=== PATIENT | female | born 1970 | race Caucasian/White ===

== ENCOUNTER → 2020-07-21 | Outpatient (CLI) | payer OTHER ==
[~2020-07-21] VITALS: Ht 165 cm; Wt 128.0 kg
[~2020-07-21] MED LIST: CATHETER FLUSH 10 ML SYR IV PRN; REGADENOSON 0.4 MG/5 ML SYR (LEXISCAN) IV ONE
[2020-07-21 14:07] VITALS: BP 144/95
--- NOTE | 2020-07-21 16:09 | Cardiology Stress Test Report ---
Stress Test Report Date of Procedure/Referring: Date of Procedure: Jul 21, 2020 PCP Aristides Stallings MD Admitting Physician No,Local Physician Indications: Chest pain Baseline Heart Rate: 76 Baseline Blood Pressure: Blood Pressure Systolic: 144 Blood Pressure Diastolic: 95 Baseline Vitals Vital Signs Date Time Temp Pulse Resp B/P (MAP) Pulse Ox O2 Delivery O2 Flow Rate FiO2 07/21/20 14:07 76 144/95 (111) 98 Baseline EKG: Baseline EKG: normal sinus rhythm Summary After explaining the procedure to the patient, she signed a consent and then brought to the stress nuclear laboratory. Patient received 0.4 mg Lexiscan for stress test, ECG, heart rate and blood pressure were monitored continuously. Resting and stress dose of radio tracer were injected, imaging was acquired and reviewed in short axis, horizontal long axis and vertical long axis views. TID: 1.01 SSS: 12 SDS: 10 EF: 77 1. Patient tolerated Lexiscan well 2. Breast attenuation with reversible ischemia involving the whole anterior wall and anterolateral wall 3. Normal left ventricular size, EF 77 percent ARISTIDES STALLINGS MD Jul 21, 2020 16:09
== END ==
LOC: CARD 07:53 → MERGE 12:00
PROVIDERS: ATTEND Internal Medicine Cardiovascular Disease
DX: I10 Essential (primary) hypertension (principal); R07.9 Chest pain, unspecified; R06.00 Dyspnea, unspecified; Z72.0 Tobacco use
CPT/HCPCS: 78452; 93017; 93306; A9502

== ENCOUNTER 2020-07-28 14:00 | Day surgery (SDC) | payer OTHER ==
[2020-07-28] VITALS (10 sets, daily range): BP systolic 123–160; BP diastolic 69–96
[~2020-07-28] VITALS: Ht 165 cm; Wt 128.0 kg
[2020-07-28 12:23] LABS: BILIRUBIN,URINE NEGATIVE (NEGATIVE); CLARITY,URINE CLEAR; COLOR,URINE YELLOW; GLUCOSE, URINE (UA) NEGATIVE (NEGATIVE); KETONES,URINE TRACE (NEGATIVE); LEUKOCYTE ESTERASE ,URINE NEGATIVE (NEGATIVE); NITRITE,URINE NEGATIVE (NEGATIVE); PROTEIN,URINE TRACE (NEGATIVE)
--- NOTE | 2020-07-28 12:27 | Diagnostic Imaging Report ---
INDICATION: Chest pain and hypertension. Time of exam 12:14 p.m. No prior studies are available for comparison. The heart size is normal. The pulmonary vascularity is unremarkable. The lungs are clear. No infiltrate, effusion or pneumothorax is detected. IMPRESSION: No acute cardiopulmonary process is detected. Dictated by: Dictated on workstation # [id number]
[2020-07-28 12:29] LABS: HEMOGLOBIN 12.1 g/dL (11.5-16.0); MEAN PLATELET VOLUME 9.1 fL (9.0-12.2); WHITE BLOOD COUNT 13.4 10^3/uL (4.3-11.0)
[2020-07-28 12:31] LABS: BACTERIA,URINE LARGE /HPF; RBC,URINE 0-2 /HPF
[2020-07-28 12:36] LABS: PROTHROMBIN TIME PATIENT 13.5 SEC (12.2-14.7)
[2020-07-28 12:42] LABS: ALANINE AMINOTRANSFERASE 41 U/L (0-55); ALBUMIN 4.3 GM/DL (3.2-4.5); ALKALINE PHOSPHATASE 74 U/L (40-136); BILIRUBIN,TOTAL 0.3 MG/DL (0.1-1.0); BUN/CREATININE RATIO 12; CALCIUM 9.3 MG/DL (8.5-10.1); CARBON DIOXIDE 23 MMOL/L (21-32); CHLORIDE 104 MMOL/L (98-107); CHOLESTEROL 265 MG/DL (< 200); CREATININE SERUM 0.82 MG/DL (0.60-1.30); GFR ESTIMATED > 60; GLUCOSE 107 MG/DL (70-105); HDL CHOLESTEROL 55 MG/DL (40-60); POTASSIUM 4.5 MMOL/L (3.6-5.0); SODIUM 140 MMOL/L (135-145); TOTAL PROTEIN 8.7 GM/DL (6.4-8.2); TRIGLYCERIDES 202 MG/DL (<150); VLDL CHOLESTEROL 40 MG/DL (5-40)
[~2020-07-28 14:00] MED LIST changes: -CATHETER FLUSH 10 ML SYR IV PRN; +HEParin (CATH LAB) 2,000 ML IV ONE; +LIDOCAINE 1% INJ 20 ML 20 ML VIAL ONE; +MIDAZOLAM 5 MG/5 ML (VERSED) VIAL ONE; +NS IV 1000 ML 1,000 ML IV SCH; +NS IV 1000 ML 1,000 ML ONE; -REGADENOSON 0.4 MG/5 ML SYR (LEXISCAN) IV ONE; +fentaNYL INJECTION 100 MCG/2 ML AMP ONE
[2020-07-28] MEDS ORDERED: LEVO75TA6 PO (14:14)
[2020-07-28] MEDS ORDERED: OMEP40CA27 PO (14:14)
[2020-07-28] MEDS ORDERED: TIZA4TAB4 PO (14:14)
[2020-07-28] MEDS ORDERED: TIOT4MIS3 IH (14:14)
[2020-07-28] MEDS ORDERED: HYDR50TA76 PO (14:14)
[2020-07-28] MEDS ORDERED: SERT50TA9 PO (14:14)
[2020-07-28] MEDS ORDERED: AMIT25TA9 PO (14:14)
[2020-07-28] MEDS ORDERED: AMLO-250 PO (14:14)
[2020-07-28] MEDS ORDERED: MTP25TSR PO (14:14)
[2020-07-28] MEDS ORDERED: HYDR50CA3 PO (14:14)
[2020-07-28] MEDS ORDERED: LOSA100T57 PO (14:14)
[2020-07-28] MEDS ORDERED: ESTR1TAB27 PO (14:19)
[2020-07-28] MEDS ORDERED: CLOP75TA69 PO (14:19)
[2020-07-28] MEDS ORDERED: BENZ100C18 PO (14:20)
[2020-07-28] MEDS ORDERED: ONDA4TAB11 PO (14:20)
--- NOTE | 2020-07-28 14:22 | NUR ---
SPOKE WITH THE PT, CALLED [facility], LONNIE BELTRAN AND [facility] TO COMPLETE THE MED REC THE FOLLOWING MEDICATIONS PT GETS THRU THE REPOSITORY: 05-11-2020 LEVOTHYROXINE 75MCG #90/90DS 05-11-2020 LOSARTAN 100MG #75 (PT TAKES TAB DAILY) 05-18-2020 AMITRIPTYLINE 25MG #60 05-31-2020 HYDROXYZINE 50MG #120 05-31-2020 OMEPRAZOLE 40MG #90/90DS 07-26-2020 SERTRALINE 50MG #90/30DS 07-26-2020 TIZANIDINE 4MG #30 07-26-2020 STIOLTO RESPIMAT #2 MEDS FILLED AT [facility]: 07-10-2020 ESTRACE 1MG #30/30DS 07-19-2020 METOPROLOL ER 25MG #30/30DS MEDS FILLED AT [facility]: 04-06-2020 AMLODIPINE 5MG #30/30DS- I DID INCLUDE THE PAST DUE FILL ON THE MED REC CLOPIDOGREL 75MG- PT WAS PRESCRIBED THIS ON 07-26-2020 (RX SENT TO [facility]) HOWEVER PT DID NOT HAVE A CHANCE TO PICK THIS MEDICATION AND START. I INCLUDED IT ON THE MED REC FOR CONTINUATION/ DISCHARGE PURPOSES. I LET TARA CHAVES IN CL[employer] OF [employer]KS KNOW OF THIS.
[2020-07-28] MEDS ORDERED: NS IV 1000 ML 1,000 ML IV SCH (14:39)
[2020-07-28] MEDS ORDERED: ATOR10TA PO (14:41)
--- NOTE | 2020-07-28 14:41 | Discharge Inst-Post CATH ---
Discharge Inst-CATH/EP Problems Reviewed?: Yes Post Cardiac Cath/EP D/C Inst Follow Up/Plan Appointment with Dr. Stallings's office in 4 weeks <b>CARDIAC CATH/EP PROCEDURE DISCHARGE INSTRUCTIONS</b> ACTIVITY * Go Home directly and rest. * Limit activity of the leg (or wrist if it was used) for 7 days including aerobics, swimming, jogging, bicycling, etc. * Restrict stair-climbing for 7 days if possible, if not, climb up with your non-cath leg, then bring together on the same step. * Avoid lifting, pushing, pulling or excessive movement of the affected extremity for 7 days. * Customary sexual activity may be resumed after 2 days-use caution not to use a position that strains or causes pain to the affected extremity. * No driving for 24 hours. * NO SMOKING. * Avoid straining for bowel movements for 7 days. * Gentle walking on level ground is allowed. * Returning to work will depend on the type of procedure and the results. Your doctor will discuss this with you. CALL YOUR DOCTOR FOR ANY OF THE FOLLOWING: *If bleeding from the puncture site occurs- Apply gentle pressure to site with clean cloth and call your doctor or EMS. * If a knot or lump forms under the skin, increases in size, or causes pain. * If bruising appears to be worsening or moving further down your leg instead of disappearing. * Temperature above 101 F. CARE OF YOUR GROIN INCISION; * Bruising or purple discoloration of the skin near the puncture site is common. * You may shower only, no bathtub bathing for 5 days. Be careful to avoid slipping as your leg may feel stiff. * If a closure device was used on your femoral artery, please see the attached guide regarding care of the device and your leg. * Leave dressing on FOR 24 hours. CARE OF YOUR WRIST INCISION; * Bruising or purple discoloration of the skin near the puncture site is common. * You may shower. * DO NOT submerge wrist. * Leave dressing on FOR 24 hours. ARISTIDES STALLINGS MD Jul 28, 2020 14:41
[2020-07-28] MEDS ORDERED: PATIENT MAY USE OWN MEDS, ALL PO SCH (14:45)
--- NOTE | 2020-07-28 14:47 | Cardiac Cath Report ---
Cardiac Cath Report Physician (s)/Road Contractor (s) Physician ARISTIDES LAWSON MD Pre-Procedure Diagnosis Pre-Procedure Diagnosis: coronary artery disease Post-Procedure Note Procedure Start Date: Jul 28, 2020 Name of Procedure: Left heart catheterization Findings/Procedure Note PROCEDURE NOTE: 50 years old lady with history of hypertension, hyperlipidemia, had an abnormal stress test with anterior wall ischemia scheduled for cardiac catheterization possible PTCA. After explaining the procedure to the patient, all pros and cons were explained, all questions were answered. The patient signed the consent and then she was placed on the cardiac catheterization laboratory. Groin was prepped SL fashion local anesthesia was used. Sheath placed in the right femoral artery. Seamus right and left catheter were used to access the coronary system. Pigtail was used to access the left ventricular cavity. Left ventriculogram was done At the end of the procedure the sheath was removed. Closure device was deployed FINDINGS: Hemodynamics LV 111/15, end-diastolic pressure 15 Aorta 103/73 mean of 75 ANATOMY: Left Main is free of obstructive disease Left Anterior Descending slightly tortuous with no obstructive disease mild disease Left Circumflex has mild disease nonobstructive disease Right Coronory Artery is dominant artery with no obstructive disease LV Gram was done showing normal left ventricular size and systolic function estimated ejection fraction 60 percent CONCLUSION: 1. Mild coronary artery disease nonobstructive disease 2. Normal left ventricular size and systolic function estimated ejection fraction 60 percent DISCUSSION AND RECOMMENDATION: Medical therapy is recommended no intervention is needed Anesthesia Type: Conscious Sedation Estimated blood loss (mL): 25 ml Contrast Amount: 45 ml Total Radiation Dose: 356 mGy Post-Procedure Diagnosis Post-operative diagnosis: Chest pain Coronary artery disease Hypertension Hyperlipidemia ARISTIDES LAWSON MD Jul 28, 2020 14:47
== END 2020-07-28 19:05 ==
LOC: CATH 14:00
PROVIDERS: ATTEND Internal Medicine Cardiovascular Disease
DX: I25.110 Atherosclerotic heart disease of native coronary artery with unstable angina pectoris (principal); I10 Essential (primary) hypertension; E78.5 Hyperlipidemia, unspecified; E78.2 Mixed hyperlipidemia; R94.39 Abnormal result of other cardiovascular function study; F17.210 Nicotine dependence, cigarettes, uncomplicated; R73.03 Prediabetes; Z79.899 Other long term (current) drug therapy; E66.01 Morbid (severe) obesity due to excess calories; Z68.42 Body mass index [BMI] 45.0-49.9, adult; Z88.0 Allergy status to penicillin; Z88.5 Allergy status to narcotic agent; Z88.1 Allergy status to other antibiotic agents; Z88.8 Allergy status to other drugs, medicaments and biological substances
CPT/HCPCS: 71045; 80053; 80061; 81000; 85027; 85610; 85730; 87081; 87088; 93458; C1760; C1894; 36415

== ENCOUNTER → 2020-10-21 | Outpatient (CLI) | payer MEDICAID ==
[~2020-10-21] MED LIST changes: +AMIT25TA9 PO; +AMLO-250 PO; +ATOR10TA PO; +BENZ100C18 PO; +CATHETER FLUSH 10 ML SYR IV PRN; +CLOP75TA69 PO; +ESTR1TAB27 PO; -HEParin (CATH LAB) 2,000 ML IV ONE; +HOLD METFORMIN - RECEIVED CONTRAST 20 ML VIAL IV SCH; +HYDR50CA3 PO; +HYDR50TA76 PO; +IOHEXOL 350 MG/ML 100 ML (OMNIPAQUE 350) VIAL IV ONE; +LEVO75TA6 PO; -LIDOCAINE 1% INJ 20 ML 20 ML VIAL ONE; +LOSA100T57 PO; -MIDAZOLAM 5 MG/5 ML (VERSED) VIAL ONE; +MTP25TSR PO; +NS 100 ML (IVPB) BAG IV ONE; -NS IV 1000 ML 1,000 ML IV SCH; -NS IV 1000 ML 1,000 ML ONE; +OMEP40CA27 PO; +ONDA4TAB11 PO; +RT-ALBUTEROL SULF 2.5 MG/3 ML PRE-MIX VIAL INH ONE; +SERT50TA9 PO; +TIOT4MIS3 IH; +TIZA4TAB4 PO; -fentaNYL INJECTION 100 MCG/2 ML AMP ONE
[2020-10-21 12:44] LABS: BUN/CREATININE RATIO 14; CREATININE SERUM 0.76 MG/DL (0.60-1.30); GFR ESTIMATED > 60
[2020-10-21 12:48] LABS: ABG OXYGEN SATURATION 98 % (94-100); ABG PCO2 39 MMHG (35-45); ABG PH 7.39 (7.37-7.43); ABG PO2 108 MMHG (79-93); ABG TCO2 24.4 MMOL/L (21.0-31.0)
[2020-10-21 12:50] LABS: ALLENS TEST YES-POS; INSPIRED O2 ROOM AIR; PATIENT TEMP 37.2; VENTILATOR NO
--- NOTE | 2020-10-21 15:17 | Diagnostic Imaging Report ---
EXAMINATION: CT Chest with intravenous contrast. TECHNIQUE: Multiple contiguous axial images were obtained through the chest after the uneventful administration of intravenous contrast. All CT scans use one or more of the following dose optimizing techniques: automated exposure control, MA and/or KvP adjustment based on a patient size and exam type, or iterative reconstruction. HISTORY: Dyspnea. COMPARISON: Chest radiograph 07/28/2020. FINDINGS: Thyroid: The thyroid is normal. Mediastinum: Heart size is normal without significant pericardial effusion. The aorta is normal in caliber. No suspicious lymphadenopathy. Lungs and airways: The lungs are clear without consolidation, pleural effusion, or pneumothorax. The airways are normal. Upper abdomen: Diffuse hypoattenuation of the liver which can be seen with hepatic steatosis. Cholecystectomy. Musculoskeletal: Degenerative changes of the spine without suspicious osseous lesion or compression fracture. IMPRESSION: 1. No acute abnormality in the chest. 2. Hepatic steatosis. Dictated by: Dictated on workstation # [id number]
== END ==
LOC: RT 11:35
PROVIDERS: ATTEND Internal Medicine Critical Care Medicine
DX: Z13.83 Encounter for screening for respiratory disorder NEC (principal); K76.0 Fatty (change of) liver, not elsewhere classified; R06.00 Dyspnea, unspecified
CPT/HCPCS: 36415; 36600; 71260; 82565; 82805; 84520; 94060; 94726; 94729

== ENCOUNTER 2020-10-29 12:50 | Outpatient (CLI) | payer MEDICAID ==
[~2020-10-29 12:50] MED LIST changes: -CATHETER FLUSH 10 ML SYR IV PRN; -HOLD METFORMIN - RECEIVED CONTRAST 20 ML VIAL IV SCH; -IOHEXOL 350 MG/ML 100 ML (OMNIPAQUE 350) VIAL IV ONE; -NS 100 ML (IVPB) BAG IV ONE; -RT-ALBUTEROL SULF 2.5 MG/3 ML PRE-MIX VIAL INH ONE
== END 2020-10-29 13:24 | disposition home or self-care (01) ==
LOC: SLEEP 12:50
PROVIDERS: ATTEND Internal Medicine Critical Care Medicine
DX: G47.30 Sleep apnea, unspecified (principal); G47.50 Parasomnia, unspecified; G47.10 Hypersomnia, unspecified
CPT/HCPCS: G0399